=== PATIENT | male | born 1970 | race Hispanic/Latino ===

== ENCOUNTER 2018-02-02 10:30 | Emergency (ER) | payer SELFPAY ==
[2018-02-02] MEDS ORDERED: LIDOCAINE HCL 1% 20 ML VIAL ONE (10:40)
== END 2018-02-02 11:17 | disposition home or self-care (01) ==
LOC: EDH 10:30
DX: S63.286A Dislocation of proximal interphalangeal joint of right little finger, initial encounter (principal); W20.8XXA Other cause of strike by thrown, projected or falling object, initial encounter; Y93.89 Activity, other specified; Y92.89 Other specified places as the place of occurrence of the external cause; Y99.8 Other external cause status
CPT/HCPCS: 26770; 73140